=== PATIENT | female | born 1960 | race Caucasian/White ===

== ENCOUNTER 2016-08-08 13:28 | Emergency (ER) | payer BC ==
[~2016-08-08] VITALS: Ht 162.6 cm; Wt 133.5 kg
[~2016-08-08 13:28] MED LIST: ADVAIR HFA120 INHALA IH; ALLEGRA180 MG; ALLEGRA180 MG PO; ASPIR 8181 M1 PO; CENTRUM SILVER1 EAC3 PO; CITALOPRAM HBR40 MG PO; GLUCOPHAGE1000 M1 PO; GLUCOPHAGE500 MG PO; GRALISE600 MG PO; MOTRIN600 MG PO; NEXIUM40 MG PO; NORCO 5/3251 TABLET PO; NORTRIPTYLINE H25 MG PO; OMNARIS12.5 GM IH; POTASSIUM GLUCO2 MEQ PO; PROAIR HFA8.5 GM IH; PROMETHAZINE HC25 M1 PO; SIMVASTATIN40 MG PO; SUCRALFATE1 GM PO; ULTRAM50 MG PO; VALIUM5 MG PO; ZOFRAN4 MG PO
[2016-08-08 14:35] LABS: INFLUENZA A VIRAL ANTIGEN NEGATIVE; INFLUENZA B VIRAL ANTIGEN NEGATIVE
[2016-08-08 14:56] LABS: HEMATOCRIT 34.9 % (36.0-46.0); MCH 23.8 PG (29.0-34.0); MCHC 31.5 G/DL (30.0-36.0); MCV 75.4 FL (83-99); MEAN PLAT.VOLUME 8.7 uM^3 (9.5-12.4); PLATELET COUNT 459 K/uL (156-360); RBC DIS.WIDTH-CV 16.4 % (11.8-14.6); RBC DIS.WIDTH-SD 43.4 % (39-53); RED BLOOD COUNT 4.63 M/uL (3.80-5.20); WHITE BLOOD COUNT 12.6 K/uL (4.1-10.2)
[2016-08-08 15:07] LABS: CHLORIDE 104 mEq/L (99-109); POTASSIUM 3.5 mEq/L (3.7-5.4); SODIUM 139 mEq/L (136-147)
[2016-08-08 15:09] LABS: GLUCOSE 159 mg/dL (70-99)
[2016-08-08 15:10] LABS: ANION GAP 12 MEQ/L (2-14)
[2016-08-08 15:13] LABS: GFR ESTIMATE (CALCULATED) > 59 mL/min/
[2016-08-08 15:14] LABS: UREA NITROGEN (BUN) 10 mg/dL (9-23)
[2016-08-08] MEDS ORDERED: PROVENTIL,2.5 MG/3 M IH (15:26)
[2016-08-08] MEDS ORDERED: PREDNISONE20 MG PO (15:27)
[2016-08-08] MEDS ORDERED: ZITHROMAX Z-PA250 MG PO (15:41)
[2016-08-08] MEDS ORDERED: HYCODAN SYRUP480 ML PO (15:41)
[2016-08-08 16:00] VITALS: BP 121/61
== END 2016-08-08 16:03 | disposition home or self-care (01) ==
LOC: EME 13:28
PROVIDERS: Nurse Practitioner Family
DX: J45.901 Unspecified asthma with (acute) exacerbation (principal); K21.9 Gastro-esophageal reflux disease without esophagitis; E78.5 Hyperlipidemia, unspecified; E11.9 Type 2 diabetes mellitus without complications; G89.29 Other chronic pain; Z79.84 Long term (current) use of oral hypoglycemic drugs
CPT/HCPCS: 71020; 80048; 85027; 87502; 94640; 99281; 99284; J7512